=== PATIENT | male | born 1940 | race Caucasian/White ===

== ENCOUNTER 2020-05-31 12:37 | Inpatient (IN) | payer MEDICARE ==
[~2020-05-31] VITALS: Ht 185.4 cm; Wt 119.3 kg
[2020-05-31 12:45] VITALS: BP 122/61
[2020-05-31 13:32] LABS: HEMATOCRIT 28.2 % (42.0-52.0); HEMOGLOBIN 9.2 gm/dL (14.0-18.0); MCHC 32.6 g/dL (28.0-37.0); MCV 89.1 fL (80.0-100.0); MPV 7.5 fl. (7.2-11.1); NUCLEATED RBCS 0 /100WBC; PLATELET COUNT* 216 thou/uL (150-400); RBC 3.16 mil/uL (4.50-6.00); RDW-CV 17.4 % (10.5-14.5); WBC 22.5 thou/uL (4.0-11.0)
[2020-05-31 13:40] LABS: CALCIUM 8.2 mg/dL (8.5-10.1); CREATININE 2.4 mg/dL (0.6-1.3); POTASSIUM 4.5 mmol/L (3.5-5.1)
[2020-05-31] MEDS ORDERED: LEVEMIR100 UNIT/1 SUBQ (13:43)
[2020-05-31] MEDS ORDERED: COMBIVENT RESPIM4 GM IH (13:43)
[2020-05-31] MEDS ORDERED: LASIX 40 MG TAB40 MG PO (13:44)
[2020-05-31] MEDS ORDERED: VICTOZA0.6 MG/0.1 SUBQ (13:44)
[2020-05-31] MEDS ORDERED: VITAMIN D3 COM1 EACH PO (13:45)
[2020-05-31] MEDS ORDERED: ROSUVASTATIN CA10 MG PO (13:45)
[2020-05-31] MEDS ORDERED: LEVEMIR100 UNIT/1 (13:45)
[2020-05-31 13:51] LABS: ALBUMIN 3.7 g/dL (3.4-5.0); TOTAL BILIRUBIN 0.8 mg/dL (<0.1-1.0); TOTAL PROTEIN 6.8 g/dL (6.4-8.2)
[2020-05-31] MEDS ORDERED: ELIQUIS5 MG PO (14:02)
[2020-05-31] MEDS ORDERED: AVODART0.5 MG PO (14:05)
[2020-05-31] MEDS ORDERED: MUCINEX600 MG PO (14:06)
[2020-05-31] MEDS ORDERED: TRELEGY ELLIPT1 EACH INH (14:07)
[2020-05-31] MEDS ORDERED: MUPIROCIN15 GM TOP (14:07)
[2020-05-31 14:15] LABS: ABSOLUTE EOSINOPHILS 0.9 thou/uL (0.0-0.7); ABSOLUTE LYMPHOCYTES 14.4 thou/uL (0.8-5.3); ABSOLUTE MONOCYTES 0.9 thou/uL (0.0-1.2); ABSOLUTE NEUTROPHILS 6.3 thou/uL (1.6-8.1); ATYPICAL LYMPHS 6 %
[2020-05-31 14:16] LABS: HYPOCHROMASIA 1+; MICROCYTES 1+; PLATELET ESTIMATE ADEQUATE
[2020-05-31 14:17] LABS: ANISOCYTOSIS 1+
[2020-05-31 14:54] LABS: APTT 37.6 Seconds (25.0-31.3)
--- NOTE | 2020-05-31 15:54 | EKG ---
[place] [address] ELECTROCARDIOGRAM REPORT Name: JUAN PABLO COLIN Room: [place] [address] ADM IN [facility]#: [id number] Admission: 05/31/20 Attend Phys: Harrison Mantilla Discharge: Date of : 40 Date of Service: 05/31/20 1326 Report #: [id number] THIS REPORT FOR: //name// [facility] ED Test Date: 2020-05-31 Test Time: 13:26:41 Pat Name: JUAN PABLO DIXIE Department: Room: [facility] Gender: M Stock Control Clerk: SIMONE : 1940 Requested By: Elisha Bowen Order Number: [id number] MD: Jim Dietz Measurements Intervals [place] Rate: 60 P: -56 [place]: 206 QRS: 99 QRSD: 191 T: 131 QT: 519 QTc: 519 Interpretive Statements Ventricular-paced complexes No further analysis attempted due to paced rhythm No previous ECG available for comparison Electronically Signed On 05-31-2020 15:54:19 MUSIC LIBRARY ASSISTANT by Jim Dietz [email or web address] <ELECTRONICALLY SIGNED> By: Jim Dietz MD, FAC 05/31/20 1554 1326 1326 Jim Dietz MD, [facility] /EPI
[2020-05-31 15:55] LABS: INR 1.1
[2020-05-31 16:40] VITALS: BP 127/54
[2020-05-31 17:15] VITALS: BP 117/69
[2020-05-31 21:09] VITALS: BP 114/56
[2020-05-31 23:55] VITALS: BP 119/64
[2020-06-01 04:07] VITALS: BP 114/49
[2020-06-01 05:22] LABS: HEMATOCRIT 27.6 % (42.0-52.0); MCH 28.9 pg (26.0-34.0); MCHC 32.5 g/dL (28.0-37.0); MCV 88.8 fL (80.0-100.0); MPV 7.7 fl. (7.2-11.1); RBC 3.11 mil/uL (4.50-6.00); RDW-CV 17.9 % (10.5-14.5); WBC 19.2 thou/uL (4.0-11.0)
[2020-06-01 05:32] LABS: CALCIUM 8.5 mg/dL (8.5-10.1); CREATININE 2.6 mg/dL (0.6-1.3); MAGNESIUM 2.2 mg/dL (1.8-2.4); POTASSIUM 5.3 mmol/L (3.5-5.1)
[2020-06-01 08:00] VITALS: BP 122/60
--- NOTE | 2020-06-01 08:10 | NUR ---
PT IS ABLE TO COMMUNICATE HIS NEEDS TO STAFF EFFECTIVELY. HE HAS DENIED THE NEED FOR PAIN MEDICATION UP TO 0700 THIS MORNING. COVID-19 PCR PENDING; ENHANCED PRECAUTIONS MAINTAINED.
--- NOTE | 2020-06-01 16:34 | 2DMMODE ---
[place] [address] 2 D/M-MODE ECHOCARDIOGRAM Name: JUAN PABLO COLIN Room: [address] IN [facility]#: [id number] Admission: 05/31/20 Attend Phys: Harrison Mantilla Discharge: Date of : 40 Date of Service: 06/01/20 1634 Report #: [id number] THIS REPORT FOR: cc: Bruno Hilton John E. DO Liston, Michael J. MD [facility] ~ APPROVED REPORT Study performed: 06/01/2020 13:57:20 EXAM: Comprehensive 2D, Doppler, and color-flow Echocardiogram Patient Location: In-Patient Room #: [facility] Status: routine BSA: 2.42 HR: 60 bpm BP: 122/60 mmHg Rhythm: NSR Other Information Study Quality: Good Indications Congestive Heart Failure COPD 2D Dimensions IVSd: 14.95 (7-11mm) LVOT Diam: 21.98 (18-24mm) LVDd: 55.92 mm PWd: 12.91 (7-11mm) Ascending Ao: 37.44 (22-36mm) LVDs: 40.97 (25-40mm) Aortic Root: 39.05 mm Volumes Left Atrial Volume (Systole) LA ESV Index: 57.00 mL/m2 Aortic Valve AoV Peak Prem.: 1.49 m/s AO Peak Gr.: 8.89 mmHg LVOT Max P.27 mmHg AO Mean Gr.: 4.86 mmHg LVOT Mean P.43 mmHg LVOT Max V: 1.15 m/s AO V2 VTI: 30.83 cm LVOT Mean V: 0.71 m/s ORTEGA (VTI): 2.96 cm2 LVOT V1 VTI: 24.07 [place] [address] 2 D/M-MODE ECHOCARDIOGRAM Name: JUAN PABLO COLIN Room: [address] IN [facility]#: [id number] Admission: 05/31/20 Attend Phys: Harrison Mantilla Discharge: Date of : 40 Date of Service: 06/01/20 1634 Report #: [id number] TDI Medial E' Prem.: 0.12 m/s Lateral E' Prem.: 0.09 m/s Pulmonary Valve PV Peak Prem.: 1.14 m/s PV Peak Gr.: 5.21 mmHg Tricuspid Valve RAP Estimate: 5.00 mmHg TR Peak Gr.: 44.86 mmHg RVSP: 49.00 mmHg PA Pressure: 49.00 mmHg Left Ventricle Left ventricle is mildly dilated. There is normal LV segmental wall motion. Mild to moderate concentric left ventricular hypertrophy. Left ventricular systolic function is normal. LVEF is 50-55%. This study is not technically sufficient to allow evaluation of the LV diastolic function due to atrial fibrillation. Right Ventricle Right ventricle is moderately dilated. Right ventricle is mildly hypokinetic. Pacemaker lead is present in the right ventricle. Atria Left atrium is severely dilated. Right atrium is severely dilated. Aortic Valve The aortic valve is normal in structure. No aortic regurgitation is present. There is no aortic valvular stenosis. Mitral Valve The mitral valve is normal in structure. Mild mitral regurgitation. No evidence of mitral valve stenosis. Tricuspid Valve The tricuspid valve is normal in structure. Mild tricuspid regurgitation. The RVSP is 40-45 mmHg. Pulmonic Valve The pulmonary valve is normal in structure. Mild pulmonic regurgitation. Great Vessels The aortic root is normal in size. The ascending [place] [address] 2 D/M-MODE ECHOCARDIOGRAM Name: JUAN PABLO COLIN Room: [address]#: [id number] Admission: 05/31/20 Attend Phys: Harrison Mantilla Discharge: Date of : 40 Date of Service: 06/01/20 1634 Report #: [id number] size. IVC is normal in size and collapses >50% with inspiration. Pericardium There is no pericardial effusion. <Conclusion> Left ventricle is mildly dilated. Mild to moderate concentric left ventricular hypertrophy. Left ventricular systolic function is normal. LVEF is 50-55%. This study is not technically sufficient to allow evaluation of the LV diastolic function due to atrial fibrillation. Pacemaker lead is present in the right ventricle. Right ventricle is moderately dilated. Right ventricle is mildly hypokinetic. Left atrium is severely dilated. Right atrium is severely dilated. Mild mitral regurgitation. Mild tricuspid regurgitation. The RVSP is 40-45 mmHg. IVC is normal in size and collapses >50% with inspiration. <ELECTRONICALLY SIGNED> By: Keith Craig MD, FACC 06/01/20 1634 1634 1634 Keith Craig MD, FACC /INF
[2020-06-01 20:16] VITALS: BP 127/64
[2020-06-01 22:40] VITALS: BP 130/60
[2020-06-02 04:28] LABS: HEMATOCRIT 30.7 % (42.0-52.0); HEMOGLOBIN 9.6 gm/dL (14.0-18.0); MCH 28.6 pg (26.0-34.0); MCHC 31.3 g/dL (28.0-37.0); MCV 91.5 fL (80.0-100.0); MPV 7.9 fl. (7.2-11.1); RBC 3.35 mil/uL (4.50-6.00); RDW-CV 17.8 % (10.5-14.5); WBC 29.7 thou/uL (4.0-11.0)
[2020-06-02 04:58] LABS: ALBUMIN 3.8 g/dL (3.4-5.0); CALCIUM 8.9 mg/dL (8.5-10.1); MAGNESIUM 2.7 mg/dL (1.8-2.4); POTASSIUM 5.1 mmol/L (3.5-5.1); TOTAL BILIRUBIN 0.5 mg/dL (<0.1-1.0)
[2020-06-02 08:00] VITALS: BP 131/55
--- NOTE | 2020-06-02 09:13 | CON ---
[address] [address] CONSULTATION Name: JUAN PABLO COLIN Room: [address] IN [facility]#: [id number] Admission: 05/31/20 Attend Phys: Harrison Ray, Discharge: Date of : 40 Report #: [id number] THIS REPORT FOR: cc: Bruno Hilton John E. DO ~ Keyur Singh MD DATE OF SERVICE: 06/01/2020 REQUESTING PHYSICIAN: Harrison Ray MD REASON FOR CONSULTATION: Chronic kidney disease stage 4. HISTORY OF PRESENT ILLNESS: The patient is an 80-year-old gentleman admitted with complaints of some shortness of breath, orthopnea and cough. The patient states that the symptoms started several days ago and getting worse. His medical history is significant for chronic kidney disease stage 4, followed with us in the office. Last time was seen by us in 04/2020 and his creatinine at that time was 2.5. He also has history of COPD, diabetes mellitus type 2, obesity, coronary artery disease. MEDICATIONS PRIOR TO ADMISSION: Reviewed. SOCIAL HISTORY: No current tobacco or alcohol abuse. FAMILY HISTORY: Noncontributory. REVIEW OF SYSTEMS: Positive for the symptoms present in the history of present illness. PHYSICAL EXAMINATION: GENERAL: Awake, alert, oriented, no acute distress. VITAL SIGNS: Blood pressure is 120/60, heart rate 60, afebrile. HEENT: Pupils round. NECK: Fatty. LUNGS: Some decreased air movements at the bases. CARDIOVASCULAR: No pericardial rub appreciated. ABDOMEN: Soft, obese. EXTREMITIES: Lower extremities, no edema. DIAGNOSTIC DATA: Chest x-ray showed some infiltrate versus fluid retention. ASSESSMENT: 1. Chronic kidney disease, stage 4. Renal function at his baseline. 2. Congestive heart failure versus pneumonia. [place] [address] CONSULTATION Name: JUAN PABLO COLIN Room: [address]#: [id number] Admission: 05/31/20 Attend Phys: Harrison Ray, Discharge: Date of : 40 Report #: [id number] 3. Chronic obstructive pulmonary disease. 4. Diabetes mellitus. 5. Obesity. PLAN: We will gently diurese him. He is on Lasix. I would continue with Lasix, but probably increase the dose to 40 mg twice a day. Continue his antibiotics. Follow his I's and O's and follow his chest x-ray. I also added sodium bicarbonate because of mild hyperkalemia and metabolic acidosis. <ELECTRONICALLY SIGNED> By: Keyur Singh MD 06/02/20 0913 1043 [id number] Lela Singh MD /nt
--- NOTE | 2020-06-02 10:15 | CON ---
[facility] [address] [place] [address] CONSULTATION Name: JUAN PABLO COLIN Room: [address] IN .R.#: [id number] Admission: 05/31/20 Attend Phys: Harrison Ray, Discharge: Date of : 40 Report #: [id number] THIS REPORT FOR: cc: Bruno Hilton John E. DO ~ Keith Craig MD [facility] DATE OF SERVICE: 06/01/2020 INDICATION: Acute on chronic heart failure. HISTORY OF PRESENT ILLNESS: The patient is a very pleasant 80-year-old gentleman with a history of coronary artery disease. He reports 3-vessel coronary artery bypass grafting in approximately 1993. He had a single lead pacemaker placed in 2017 for atrial fibrillation with slow ventricular response rate. He reports being treated in the past for episodes of congestive heart failure. The patient was initially seen in the Emergency Room with complaints of increased lower extremity swelling and orthopnea as well as exertional dyspnea. He was not having chest pain. He did rule out for myocardial infarction. NT-proBNP was elevated at approximately 2500. Chest x-ray showed mild pulmonary vascular congestion. An echocardiogram here shows an ejection fraction of approximately 50-55% with mild left ventricular enlargement and left ventricular hypertrophy. The patient has pulmonary pressures estimated to be 40-45 mm by echocardiogram. Diastolic function was not able to be evaluated due to underlying atrial fibrillation. The patient has received IV furosemide with improvement in his symptoms. PAST MEDICAL HISTORY: 1. Stage 3 chronic renal insufficiency with a baseline creatinine of approximately 2.2-2.4. 2. Type 2 diabetes mellitus. 3. Hyperlipidemia. 4. History of congestive heart failure. 5. Chronic atrial fibrillation. 6. Hypercoagulable state due to atrial fibrillation. 7. Chronic anticoagulation. 8. Recently diagnosed CLL. 9. History of hypertension. 10. BPH 11. Mild COPD. 12. Anemia, possibly due to CLL or iron deficiency. 13. CABG many years ago. SOCIAL HISTORY: The patient denies use [place] [address] CONSULTATION Name: JUAN PABLO COLIN Room: [address]#: [id number] Admission: 05/31/20 Attend Phys: Harrison Ray, Discharge: Date of : 40 Report #: [id number] FAMILY HISTORY: Noncontributory. REVIEW OF SYSTEMS: A 14-point review of systems as outlined above. PHYSICAL EXAMINATION: VITAL SIGNS: Blood pressure was 124/64, pulse is 60 and regular. GENERAL: This is a pleasant gentleman who is in no distress. Mood and affect appropriate. HEENT: Extraocular muscles intact. Mucous membranes are moist. NECK: Shows no obvious jugular venous distention. I do not appreciate bruit. CHEST: Reveals diminished breath sounds in the bases without obvious rales. CARDIOVASCULAR: Reveals a regular rhythm. I do not appreciate gallop or rub. ABDOMEN: Reveals a protuberant abdomen, soft, and nontender. Bowel sounds present. EXTREMITIES: Shows 1-2+ pedal and ankle edema with previous venotomy scarring noted on lower extremity. LABORATORY DATA: A 12-lead EKG shows ventricular pacing with likely underlying atrial fibrillation. Chest x-ray shows infiltrate consistent with pulmonary edema. Labs are reviewed. Sodium 136, potassium 5.3, chloride 103, bicarbonate 19, BUN 52, creatinine 2.6, serum glucose 213. Troponin less than 0.06 on 3 separate occasions. NT-proBNP 2419. White blood cell count 19.2, hemoglobin 9.0, platelet count 195,000. IMPRESSION AND RECOMMENDATIONS: 1. Acute on chronic heart failure, mostly diastolic in nature. The patient has had some improvement with IV diuresis, although in this setting, he had slight worsening of renal function. We will follow labs in a.m. and consider whether additional diuresis will be tolerated. 2. Coronary artery disease, presently stable. He is not having any symptoms to suggest angina. Continue risk factor modification. 3. Chronic atrial fibrillation. The patient is chronically anticoagulated and having no bleeding problems. His rate is slow. He is status post pacemaker placement. 4. Single chamber pacemaker in place for slow ventricular response to atrial fibrillation. The patient follows with outside Cardiology Group. 5. Hypertension, adequately controlled on current regimen. 6. Acute on chronic renal insufficiency. The patient to be seen by Nephrology. 7. Dyslipidemia. Continue atorvastatin 40 [place] [address] CONSULTATION Name: JUAN PABLO COLIN Room: [address]#: [id number] Admission: 05/31/20 Attend Phys: Harrison Ray, Discharge: Date of : 40 Report #: [id number] 8. Chronic lymphocytic leukemia. The patient recently established with Hematology. <ELECTRONICALLY SIGNED> By: Keith Craig MD, FACC 06/02/20 1015 1730 [id number] centeraline Craig MD, FACAlana /nt
--- NOTE | 2020-06-02 10:39 | NUR ---
RECIEVED REPORT AROUND 0715. ASSUMED CARE. VS AND ASSESSMENT CHARTED. IV INTACT. HEART MONTIOR ATTACHED. MEDS GIVEN PER AUG. PT UP ADLIB. TO BE DISCHARGED THIS SHIFT. NO PAIN REPORTED. CALLL LIGHT WITHIN REACH. WILL CONTINUE TO MONITOR.
--- NOTE | 2020-06-02 11:03 | NUR ---
CM SPOKE TO THE PT TO COMPLETE CM ASSESSMENT. PT A&O, INDEPENDENT WITH ADL'S, ACTIVE AND DRIVES. PT RESIDES AT HOME WITH SPOUSE. PT USES CPAP AT [facility]. NO OTHER DME. PT HAS 0 HX OF HH OR SNF. NO D/C PLANNING NEEDS ANTICIPATED. CM WILL REMAIN AVAILABLE TO ASSIST AND FOLLOW NEEDED.
[2020-06-02] MEDS ORDERED: DOXYCYCLINE 10100 MG PO (11:33)
[2020-06-02] MEDS ORDERED: PREDNISONE 10 M10 MG PO (11:34)
[2020-06-02] MEDS ORDERED: PROTONIX40 M2 PO (11:38)
[2020-06-02 11:56] VITALS: BP 125/62
[2020-06-02 14:12] VITALS: BP 125/62
--- NOTE | 2020-06-02 14:14 | NUR ---
CM SPOKE TO THE PT TO DISCUSS DISCHARGE PLANNING AND HH AT D/C. PT DECLINED DESPITE EDUCATION AND ENCOURAGEMENT. PT TO D/C HOME TODAY WITH SELF-CARE. CM WILL REMAIN AVAILABLE TO ASSIST AND FOLLOW NEEDED.
--- NOTE | 2020-06-02 16:58 | NUR ---
RECIEVED DISCHARGE ORDERS. IV TAKEN OUT. HEART MONITOR OFF. DISCHARGE PAPER WORK GONE OVER WITH PT. PT COMMUNICATED UNDERSTANDING. PT LEFT UNIT VIA WHEEL CHAIR WITH ALL BELONGINGS AND NURSING STAFF AROUND 1330.
== END 2020-06-02 14:50 | disposition home or self-care (01) | DRG 871 ==
LOC: M.ERS 12:37 → M.ORTHSURG 15:15 → M.TBA-ER 15:15 → M.ORTHSURG 17:07 → M.2W 06-01 22:10
PROVIDERS: Internal Medicine Nephrology; Nurse Practitioner Family; ADMIT Family Medicine; ATTEND Family Medicine
DX: A41.89 Other specified sepsis (principal); J96.21 Acute and chronic respiratory failure with hypoxia; I50.33 Acute on chronic diastolic (congestive) heart failure; J15.6 Pneumonia due to other Gram-negative bacteria; C95.90 Leukemia, unspecified not having achieved remission; J44.0 Chronic obstructive pulmonary disease with (acute) lower respiratory infection; I13.0 Hypertensive heart and chronic kidney disease with heart failure and stage 1 through stage 4 chronic kidney disease, or unspecified chronic kidney disease; N18.4 Chronic kidney disease, stage 4 (severe); I48.20 Chronic atrial fibrillation, unspecified; D68.69 Other thrombophilia; J44.1 Chronic obstructive pulmonary disease with (acute) exacerbation; N17.9 Acute kidney failure, unspecified; E11.65 Type 2 diabetes mellitus with hyperglycemia; E11.22 Type 2 diabetes mellitus with diabetic chronic kidney disease; N40.0 Benign prostatic hyperplasia without lower urinary tract symptoms; E66.01 Morbid (severe) obesity due to excess calories; E78.5 Hyperlipidemia, unspecified; D64.9 Anemia, unspecified; I25.10 Atherosclerotic heart disease of native coronary artery without angina pectoris; Z20.828 Contact with and (suspected) exposure to other viral communicable diseases; Z68.34 Body mass index [BMI] 34.0-34.9, adult; Z95.0 Presence of cardiac pacemaker; I25.2 Old myocardial infarction; Z95.1 Presence of aortocoronary bypass graft; Z90.49 Acquired absence of other specified parts of digestive tract; Z88.2 Allergy status to sulfonamides; Z79.4 Long term (current) use of insulin; Z79.01 Long term (current) use of anticoagulants; Z79.899 Other long term (current) drug therapy